=== PATIENT | male | born 1955 | race Caucasian/White ===

== ENCOUNTER → 2023-11-17 06:22 | Day surgery (SDC) | payer MEDICARE, BC, SELFPAY ==
[2023-11-17 07:14] VITALS: BMI 41.8
== END ==
LOC: CATH 06:22
PROVIDERS: ATTENDING PHYSICIAN Internal Medicine Cardiovascular Disease; FAMILY PHYSICIAN Internal Medicine
DX: I48.91 Unspecified atrial fibrillation (principal); I08.3 Combined rheumatic disorders of mitral, aortic and tricuspid valves; I10 Essential (primary) hypertension; E78.5 Hyperlipidemia, unspecified; Z87.891 Personal history of nicotine dependence; Z79.01 Long term (current) use of anticoagulants
CPT/HCPCS: 93312; 93320; 93325; 93005

== ENCOUNTER → 2024-01-25 07:48 | Outpatient (REF) | payer MEDICARE, BC, SELFPAY | LOC: PAVMRI 07:48 | PROVIDERS: ATTENDING PHYSICIAN Internal Medicine Cardiovascular Disease; FAMILY PHYSICIAN Internal Medicine | DX: I51.89 Other ill-defined heart diseases (principal) | CPT/HCPCS: 75561; 75565; A9585 ==

== ENCOUNTER → 2025-06-23 10:22 | Outpatient (REF) | payer MEDICARE, BC, SELFPAY | LOC: HWRAD 10:22 | PROVIDERS: ATTENDING PHYSICIAN Internal Medicine | DX: Z87.891 Personal history of nicotine dependence (principal) | CPT/HCPCS: 71271 ==

== ENCOUNTER → 2025-10-02 13:19 | Outpatient (REF) | payer MEDICARE, BC, SELFPAY | LOC: HWRCS 13:19 | PROVIDERS: ATTENDING PHYSICIAN Internal Medicine Cardiovascular Disease; FAMILY PHYSICIAN Internal Medicine | DX: I10 Essential (primary) hypertension (principal); I48.20 Chronic atrial fibrillation, unspecified; I51.89 Other ill-defined heart diseases; I34.0 Nonrheumatic mitral (valve) insufficiency | CPT/HCPCS: 93306 ==